=== PATIENT | female | born 1975 | race African-American/Black ===

== ENCOUNTER 2018-06-27 14:02 | Emergency (ER) | payer BC ==
[2018-06-27 14:25] VITALS: BP 114/67; PULSE 65; TEMP 98.9; BMI 29.2
--- NOTE | 2018-06-27 14:32 | PDOC ---
History of Present Illness - General Chief Complaint: Edema Stated Complaint: left facial swelling Time Seen by Provider: 06/27/18 14:24 History Source: Patient Exam Limitations: No Limitations - History of Present Illness Initial Comments: 06/27/18 15:08 43 yo F with no pmhx presents to the emergency department with left cheek swelling and left anterior neck pain. Per the patient, she began having swelling yesterday without pain (onset of pain today). Pain is dull, 2/10, located in the left cheek and anterior neck and is constant. Denies allergies to medications, foods, and products. She states she never had this previously. Denies the following: fever, chills, recent sick contacts, ears/nose/throat pain , throat swelling, SOB, rash, chest pain, visual changes, recent dental procedures, dental pain, nasal congestion/discharge, and cough. Pmhx: None Shx: Appendectomy 2010 Meds: None Allergies: NKDA Social: Denies tobacco, alcohol, and substance abuse. Past History - Past Medical History Allergies/Adverse Reactions: Allergies Allergy/AdvReac Type Severity Reaction Status Date / Time No Known Allergies Allergy Verified 06/27/18 14:03 Home Medications: Ambulatory Orders NK [No Known Home Medication] 06/27/18 COPD: No Other medical history: DENIES - Surgical History Appendectomy: Yes (2008) - Immunization History Immunization Up to Date: Yes - Suicide/Smoking/Psychosocial Hx Smoking History: Never smoked Have you smoked in the past 12 months: No Information on smoking cessation initiated: No Hx Alcohol Use: No Drug/Substance Use Hx: No Substance Use Type: None Review of Systems - Review of Systems Able to Perform ROS?: Yes Is the patient limited Armenian proficient: No Constitutional: No: Chills, Diaphoresis, Fever, Weakness HEENTM: No: Eye Pain, Recent change in vision, Ear Pain, Ear Discharge, Nose Pain, Nose Congestion, Throat Pain, Throat Swelling, Mouth Pain, Dental Problems , Difficulty Swallowing, Mouth Swelling Respiratory: No: Cough, Shortness of Breath, Hemoptysis Cardiac (ROS): No: Chest Pain, Irregular Heart Rate, Lightheadedness, Palpitations, Syncope ABD/GI: No: Constipated, Diarrhea, Difficulty Swallowing, Nausea, Poor Fluid Intake, Rectal Bleeding, Vomiting, Abdominal cramping, Tarry Stools : No: Dysuria, Frequency, Hematuria Musculoskeletal: Yes: Neck Pain. No: Back Pain, Muscle Pain, Muscle Weakness Integumentary: No: Flushing, Lesions, Pallor, Rash Neurological: No: Headache, Numbness, Tremors, Weakness, Unsteady Gait, Ataxia, Dizziness Psychiatric: No: Stressors Endocrine: No: Unexplained Weight Gain Hematologic/Lymphatic: No: Anemia *Physical Exam - Vital Signs Last Vital Signs Temp Pulse Resp BP Pulse Ox 98.9 F 65 16 114/67 100 06/27/18 14:03 06/27/18 14:03 06/27/18 14:03 06/27/18 14:03 06/27/18 14:03 - Physical Exam General Appearance: Yes: Nourished, Appropriately Dressed. No: Apparent Distress, Alcohol on Breath HEENT: positive: EOMI, JEANNE, Normal Voice, Symmetrical, Pharynx Normal, Sinus Tenderness (left side maxilla), TM Erythema (superior portion of TM erythema. good light reflex). negative: Pale Conjunctivae, Scleral Icterus (R), Scleral Icterus (L), Muffled/Hoarse voice, Pharyngeal Erythema, Nasal Congestion, Rhinorrhea, TM Bulging, TM Dull, Excessive drooling Neck: positive: Tender (left anterior neck), Trachea midline, Lymphadenopathy (L ) (anterior cervical lymphnode), Thyromegaly. negative: Rigid, Decreased range of motion, Lymphadenopathy (R), Tender lateral, Tender midline Respiratory/Chest: positive: Lungs Clear, Normal Breath Sounds. negative: Chest Tender, Respiratory Distress, Accessory Muscle Use, Decreased Breath Sounds, Paradoxal Breathing, Crackles, Rales, Rhonchi, Stridor Cardiovascular: positive: Regular Rhythm, Regular Rate, S1, S2. negative: Systolic Murmur Gastrointestinal/Abdominal: positive: Normal Bowel Sounds, Flat, Soft. negative : Tender, Protuberent, Distended, Tenderness Lymphatic: positive: Adenopathy (left anterior neck LN) Musculoskeletal: positive: Normal Inspection. negative: CVA Tenderness Extremity: positive: Normal Capillary Refill, Normal Inspection, Normal Range of Motion. negative: Tender Integumentary: positive: Normal Color, Dry, Warm Neurologic: positive: prompt care rn II-XII NML intact, Fully Oriented, Alert, Normal Mood/ Affect, Normal Response, Motor Strength 5/5. negative: EOM Palsy, Facial Droop , Sensory Deficit Moderate Sedation - Procedure Monitoring Vital Signs: Procedure Monitoring Vital Signs Temperature 98.9 F 06/27/18 14:03 Pulse Rate 65 06/27/18 14:03 Respiratory Rate 16 06/27/18 14:03 Blood Pressure 114/67 06/27/18 14:03 O2 Sat by Pulse Oximetry (%) 100 06/27/18 14:03 ED Treatment Course - LABORATORY CBC & Chemistry Diagram: 06/27/18 15:35 06/27/18 15:35 Medical Decision Making - Medical Decision Making 06/27/18 15:20 43 yo F with no pmhx presents to the emergency department with left cheek swelling and left anterior neck pain. Initial vitals: Initial Vital Signs Temp Pulse Resp BP Pulse Ox 98.9 F 65 16 114/67 100 06/27/18 14:03 06/27/18 14:03 06/27/18 14:03 06/27/18 14:03 06/27/18 14:03 Work *DC/Admit/Observation/Transfer Diagnosis at time of Disposition: Neck pain, Atypical face pain - Discharge Dispostion Disposition: HOME Condition at time of disposition: Stable Decision to Admit order: No - Referrals Referrals: Jose Angel Gtz MD [Staff Physician] - - Patient Instructions Additional Instructions: You were seen in the emergency department for the evaluation of your face and neck pain. Your labs are within normal limits and your thyroid tests are pending. Please call tomorrow afternoon to find out results. In addition, your CT imaging shows no acute processes in the face. Please follow up with your primary medical doctor Dr. Gtz within 72 hours after discharge for follow up care and management. Please return to the emergency department if your symptoms worsen or new concerning symptoms arise such as fever/chills, confusion, unsteady gait, inability to swallow, and difficulty breathing. Thank you. - Post Discharge Activity
[2018-06-27 16:02] LABS: ALBUMIN 3.6 g/dl (3.5-5.0); ALK PHOS 46 U/L (32-92); ANION GAP 5 MMOL/L (8-16); BILIRUBIN,TOTAL 0.8 mg/dl (0.2-1.0); BLOOD UREA NITROGEN 11 mg/dl (7-18); CALCIUM 8.2 mg/dl (8.4-10.2); CHLORIDE 105 mmol/L (98-107); CO2 25 mmol/L (22-28); CREATININE 0.8 mg/dl (0.6-1.3); GLUCOSE,RANDOM 93 mg/dl (74-106); POTASSIUM 4.1 mmol/L (3.5-5.1); SGOT/AST 19 U/L (10-42); SGPT/ALT 16 U/L (10-40); SODIUM 135 mmol/L (136-145); TOT PROT 6.9 g/dl (6.4-8.3)
[2018-06-27 16:11] LABS: EOS % 1.2 % (0-4.5); HEMATOCRIT 38.3 % (32.4-45.2); HEMOGLOBIN 12.8 GM/dl (10.7-15.3); MCH 31.1 pg (25.7-33.7); MCHC 33.5 g/dl (32.0-36.0); MEAN CELL VOLUME 92.8 fl (80-96); MEAN PLT VOLUME 9.5 fl (7.5-11.1); MONO % 6.2 % (3.8-10.2); NEUT % 55.6 % (42.8-82.8); PLATELET COUNT 322 K/MM3 (134-434); RBC 4.13 M/mm3 (3.60-5.2); RDW 12.7 % (11.6-15.6); WHITE BLOOD COUNT 7.3 K/mm3 (4.0-10.8)
--- NOTE | 2018-06-27 17:39 | PDOC ---
Attending Attestation - Resident Resident Name: Christian Jay - ED Attending Attestation I have performed the following: I have examined & evaluated the patient, The case was reviewed & discussed with the resident, I agree w/resident's findings & plan, Exceptions are as noted - HPI HPI: 06/27/18 17:32 Reviewed Residents HPI - Physicial Exam PE: 06/27/18 17:32 Reviewed Residents PE - Medical Decision Making 06/27/18 17:39 Subjective right-sided facial swelling with cervical adenopathy unable to delineate clear source of infection there is no tooth pathology ear pathology or throat pathology noted on physical examination given the area facial swelling is CT with IV contrast was ordered to rule out deep space infection and on CAT scan there is no evidence of deep space infection at this time no acute intervention needed patient advised to follow-up with her doctor in 2 days and return to the emergency department for any severe worsening symptoms or for any concerns.
== END 2018-06-27 17:56 | disposition home or self-care (01) ==
LOC: FER 14:02
DX: M54.2 Cervicalgia (principal); G50.1 Atypical facial pain
CPT/HCPCS: 36415; 70487-TC; 80053; 84439; 84443; 84703; 85025; 87070; 99282-25

== ENCOUNTER 2018-12-12 11:04 | Emergency (ER) | payer BC ==
[2018-12-12 11:22] VITALS: BP 110/53; PULSE 88; TEMP 98.4; BMI 25.7
[2018-12-12] MEDS ORDERED: ONDANSETRON *ODT* 4 MG TABLET SL ONE (12:57)
[2018-12-12] MEDS ORDERED: ONDANSETRON *ODT* 4 MG TABLET ONE (13:07)
--- NOTE | 2018-12-12 13:25 | PDOC ---
History of Present Illness - General Chief Complaint: Nausea/Vomiting Stated Complaint: NAUSEA/VOMITING Time Seen by Provider: 12/12/18 12:54 History Source: Patient Exam Limitations: No Limitations - History of Present Illness Travel History: No Initial Comments: 12/12/18 13:06 43-year-old female with no past medical history presents to ED with sudden onset of nausea vomiting since 3 AM this morning. Patient states somewhat similar symptoms 3 days prior that resolved and now has another son with similar symptoms. Mother states that prior to vomiting she had a burning sensation to her mid chest but when she vomited the sensation went away. Patient has no other complaints presently. Quality: reports: mild Pain Radiation: reports: no radiation Activities at Onset: reports: none Alleviating Factors: improves with: Vomiting Past History - Travel Traveled outside of the country in the last 30 days: No Close contact w/someone who was outside of country & ill: No - Past Medical History Allergies/Adverse Reactions: Allergies Allergy/AdvReac Type Severity Reaction Status Date / Time No Known Allergies Allergy Verified 06/27/18 14:03 Home Medications: Ambulatory Orders Ondansetron HCl [Zofran] 4 mg PO TID PRN #12 tablet 12/12/18 COPD: No Disorders: No Kidney Stones: No - Surgical History Appendectomy: Yes (2008) - Immunization History Immunization Up to Date: Yes - Suicide/Smoking/Psychosocial Hx Smoking History: Never smoked Have you smoked in the past 12 months: No Information on smoking cessation initiated: No Hx Alcohol Use: No Drug/Substance Use Hx: No Substance Use Type: None Patient Lives Alone: No Lives with/in: spouse/SO Review of Systems - Review of Systems Able to Perform ROS?: Yes Constitutional: Yes: Loss of Appetite HEENTM: No: Symptoms Reported Respiratory: No: Symptoms reported Cardiac (ROS): No: Symptoms Reported ABD/GI: Yes: Nausea, Poor Appetite, Poor Fluid Intake, Vomiting. No: Constipated, Diarrhea : No: Symptoms Reported Musculoskeletal: No: Symptoms Reported Integumentary: No: Symptoms Reported Neurological: No: Symptoms reported *Physical Exam - Vital Signs Last Vital Signs Temp Pulse Resp BP Pulse Ox 98.4 F 88 18 110/53 L 98 12/12/18 11:19 12/12/18 11:19 12/12/18 11:12/12/18 11:12/12/18 11:19 - Physical Exam General Appearance: Yes: Nourished, Appropriately Dressed. No: Apparent Distress HEENT: positive: EOMI, JEANNE, TMs Normal, Pharynx Normal. negative: Pale Conjunctivae Neck: positive: Supple Respiratory/Chest: positive: Lungs Clear, Normal Breath Sounds. negative: Respiratory Distress, Accessory Muscle Use Cardiovascular: positive: Regular Rhythm, Regular Rate. negative: Murmur Gastrointestinal/Abdominal: positive: Soft. negative: Tenderness Extremity: positive: Normal Inspection Integumentary: positive: Normal Color, Warm, Moist Neurologic: positive: Motor Strength 5/5 (ambulatory) ED Treatment Course - Medications Given in the ED: ED Medications Discontinued Medications Generic Name Dose Route Start Last Admin Trade Name Freq PRN Reason Stop Dose Admin Ondansetron HCl 4 mg 12/12/18 12:57 12/12/18 13:10 Zofran Odt - SL 12/12/18 12:58 4 mg ONCE ONE Administration Medical Decision Making - Medical Decision Making 12/12/18 13:07 Chief complaint: Nausea vomiting since this morning. Similar symptoms with 2 of her children Exam. Patient with normal vital signs no abdominal tenderness. Plan: Zofran sublingual and by mouth challenge 12/12/18 14:26 Patient tolerated margot crackers and apple juice and has no complaints of nausea or abdominal pain presently. Patient will be discharged home with Zofran. *DC/Admit/Observation/Transfer Diagnosis at time of Disposition: Nausea & vomiting - Discharge Dispostion Disposition: HOME Condition at time of disposition: Improved - Prescriptions Prescriptions: Ondansetron HCl [Zofran] 4 mg PO TID PRN #12 tablet PRN Reason: Nausea And/Or Vomiting - Referrals Referrals: Jose Angel Gtz MD [Primary Care Provider] - - Patient Instructions Printed Discharge Instructions: DI for Vomiting -- Adult Additional Instructions: Eat bland food for the next 48 hours and then advance as tolerated. Drink plenty of fluids and take Zofran as needed for nausea. If symptoms do not improve please return to the ED. - Post Discharge Activity Forms/Work/School Notes: Back to Work
== END 2018-12-12 15:20 | disposition home or self-care (01) ==
LOC: JER 11:04
DX: R11.2 Nausea with vomiting, unspecified (principal)
CPT/HCPCS: 99281-25; Q0162

== ENCOUNTER 2023-07-01 11:16 | Emergency (ER) | payer BC ==
[2023-07-01 11:22] VITALS: BP 129/66; PULSE 72; RESP 18; TEMP 97.9; BMI 30.2
[2023-07-01] MEDS ORDERED: BACITRACIN ZINC 15 GM TUBE TOPICAL OINTMENT TP ONE (13:31)
[2023-07-01] MEDS ORDERED: ACETAMINOPHEN 500 MG TABLET (FP) PO ONE (13:31)
[2023-07-01] MEDS ORDERED: DIPHTH,PERTUSS(ACELL),TET 0.5 ML DISP.SYRIN IM ONE ×2 (13:31→14:09)
[2023-07-01] MEDS ORDERED: BACITRACIN ZINC 15 GM TUBE TOPICAL OINTMENT ONE (14:11)
[2023-07-01] MEDS ORDERED: ACETAMINOPHEN 500 MG TABLET (FP) ONE (14:11)
== END 2023-07-01 14:23 | disposition home or self-care (01) ==
LOC: JERFT 11:16
PROC: 3E0234Z Introduction of Serum, Toxoid and Vaccine into Muscle, Percutaneous Approach (ICD-10-PCS; principal; 2023-07-01)
DX: S80.01XA Contusion of right knee, initial encounter (principal); M79.644 Pain in right finger(s); R22.31 Localized swelling, mass and lump, right upper limb; W01.0XXA Fall on same level from slipping, tripping and stumbling without subsequent striking against object, initial encounter
CPT/HCPCS: 73140-TC-RT-FY; 73562-TC-RT-FY; 90715; 99284-25